=== PATIENT | female | born 1940 | race Caucasian/White ===

== ENCOUNTER 2017-10-20 14:50 | Outpatient (CLI) | payer OTHER ==
[~2017-10-20 14:50] MED LIST: BAYER ADVANCED500 MG; COZAAR50 MG; FOLIC ACID1 MG; GLIMEPIRIDE4 MG; INDAPAMIDE1.25 MG; INTRINSI B12-F1 EACH; JANUMET 50-1,1 UDTAB; METFORMIN HCL500 MG; OSTERA TABLET1 EACH; PRILOSEC10 M1; ZYRTEC10 M3
== END 2017-10-20 17:00 | disposition home or self-care (01) ==
LOC: RAD 14:50
DX: M53.1 Cervicobrachial syndrome (principal); M54.15 Radiculopathy, thoracolumbar region; M54.5 Low back pain; M54.17 Radiculopathy, lumbosacral region

== ENCOUNTER 2018-06-24 10:06 | Outpatient (CLI) | payer OTHER | END 2018-06-24 10:17 | disposition home or self-care (01) | LOC: RAD 10:06 | DX: S20.211A Contusion of right front wall of thorax, initial encounter (principal) ==

== ENCOUNTER 2018-08-06 14:18 | Outpatient (CLI) | payer OTHER | END 2018-08-06 14:26 | disposition home or self-care (01) | LOC: MRI 14:18 | DX: S83.282A Other tear of lateral meniscus, current injury, left knee, initial encounter (principal) | CPT/HCPCS: 73718 ==

== ENCOUNTER → 2018-10-22 | Outpatient (CLI) | payer OTHER | END | disposition home or self-care (01) | LOC: MRI 08-06 14:15 → RAD 10:38 | DX: M25.572 Pain in left ankle and joints of left foot (principal); M25.562 Pain in left knee ==

== ENCOUNTER → 2018-12-14 | Outpatient (CLI) | payer OTHER | END | disposition home or self-care (01) | LOC: RAD 09:57 | DX: S62.306A Unspecified fracture of fifth metacarpal bone, right hand, initial encounter for closed fracture (principal); L03.818 Cellulitis of other sites; J45.30 Mild persistent asthma, uncomplicated; R06.09 Other forms of dyspnea; J32.8 Other chronic sinusitis ==

== ENCOUNTER 2019-01-04 09:57 | Outpatient (CLI) | payer OTHER | END 2019-01-04 11:42 | disposition home or self-care (01) | LOC: MRI 09:57 | DX: M17.12 Unilateral primary osteoarthritis, left knee (principal); M19.90 Unspecified osteoarthritis, unspecified site | CPT/HCPCS: 73721 ==

== ENCOUNTER → 2019-06-16 | Outpatient (CLI) | payer OTHER | END | disposition home or self-care (01) | LOC: RAD 10:14 | DX: M17.12 Unilateral primary osteoarthritis, left knee (principal) ==

== ENCOUNTER → 2019-10-13 | Outpatient (CLI) | payer OTHER | END | disposition home or self-care (01) | LOC: MRI 10:15 | DX: I69.811 Memory deficit following other cerebrovascular disease (principal) | CPT/HCPCS: 70551 ==

== ENCOUNTER 2020-07-17 08:33 | Outpatient (CLI) | payer OTHER | END 2020-07-17 08:40 | disposition home or self-care (01) | LOC: MAMO-SONO 08:33 | PROVIDERS: ATTEND Obstetrics & Gynecology Gynecology | DX: N60.02 Solitary cyst of left breast (principal); N60.01 Solitary cyst of right breast; Z12.31 Encounter for screening mammogram for malignant neoplasm of breast; K76.0 Fatty (change of) liver, not elsewhere classified; R92.1 Mammographic calcification found on diagnostic imaging of breast; N60.11 Diffuse cystic mastopathy of right breast; N60.12 Diffuse cystic mastopathy of left breast; E66.8 Other obesity; N81.11 Cystocele, midline; N81.6 Rectocele; N95.2 Postmenopausal atrophic vaginitis; R10.2 Pelvic and perineal pain; R10.11 Right upper quadrant pain; M89.8X8 Other specified disorders of bone, other site; M81.0 Age-related osteoporosis without current pathological fracture; M85.88 Other specified disorders of bone density and structure, other site ==

== ENCOUNTER 2020-07-17 11:14 | Outpatient (CLI) | payer OTHER | END 2020-07-17 11:34 | disposition home or self-care (01) | LOC: NUCLEAR 11:14 | PROVIDERS: ATTEND Obstetrics & Gynecology Gynecology | DX: M81.0 Age-related osteoporosis without current pathological fracture (principal); M85.9 Disorder of bone density and structure, unspecified; M89.9 Disorder of bone, unspecified ==

== ENCOUNTER 2020-12-28 15:42 | Outpatient (CLI) | payer OTHER | END 2020-12-28 15:45 | disposition home or self-care (01) | LOC: RAD 15:42 | PROVIDERS: ATTEND Surgery | DX: I10 Essential (primary) hypertension (principal); K43.9 Ventral hernia without obstruction or gangrene ==

== ENCOUNTER 2022-02-28 16:05 | Outpatient (CLI) | payer OTHER | END 2022-03-01 15:57 | disposition home or self-care (01) | LOC: RAD 16:05 | PROVIDERS: ATTEND Internal Medicine Geriatric Medicine | DX: R07.81 Pleurodynia (principal); S20.302A Unspecified superficial injuries of left front wall of thorax, initial encounter ==

== ENCOUNTER 2023-06-09 14:08 | Outpatient (CLI) | payer OTHER | END 2023-06-09 14:30 | disposition home or self-care (01) | LOC: RAD 14:08 | DX: S42.242A 4-part fracture of surgical neck of left humerus, initial encounter for closed fracture (principal) ==

== ENCOUNTER 2023-07-01 14:49 | Outpatient (CLI) | payer OTHER | END 2023-07-01 14:53 | disposition home or self-care (01) | LOC: RAD 14:49 | DX: S42.232A 3-part fracture of surgical neck of left humerus, initial encounter for closed fracture (principal) ==

== ENCOUNTER 2023-12-29 15:09 | Outpatient (CLI) | payer OTHER | END 2023-12-29 15:14 | disposition home or self-care (01) | LOC: RAD 15:09 | PROVIDERS: ATTEND Orthopaedic Surgery | DX: S92.232A Displaced fracture of intermediate cuneiform of left foot, initial encounter for closed fracture (principal) ==

== ENCOUNTER 2024-05-14 14:38 | Outpatient (CLI) | payer OTHER | END 2024-05-14 14:50 | disposition home or self-care (01) | LOC: RAD 14:38 | DX: M54.17 Radiculopathy, lumbosacral region (principal) ==

== ENCOUNTER 2024-09-02 12:56 | Outpatient (CLI) | payer OTHER | END 2024-09-02 13:01 | disposition home or self-care (01) | LOC: RAD 12:56 | PROVIDERS: ATTEND Orthopaedic Surgery Sports Medicine | DX: M25.562 Pain in left knee (principal) ==

== ENCOUNTER 2024-10-29 14:36 | Outpatient (CLI) | payer OTHER | END 2024-10-29 14:39 | disposition home or self-care (01) | LOC: RAD 14:36 | PROVIDERS: ATTEND Orthopaedic Surgery Sports Medicine | DX: M25.562 Pain in left knee (principal) ==